=== PATIENT | male | born 1960 ===

== ENCOUNTER 2020-10-27 10:36 | Day surgery (SDC) | payer OTHER ==
[~2020-10-27 10:36] MED LIST: CAMBIA50 MG PO
== END 2020-10-27 17:30 | disposition home or self-care (01) ==
LOC: CIR.AMB 10:36
PROVIDERS: ATTEND Orthopaedic Surgery
DX: M75.112 Incomplete rotator cuff tear or rupture of left shoulder, not specified as traumatic (principal); M75.22 Bicipital tendinitis, left shoulder; Z20.822 Contact with and (suspected) exposure to COVID-19